=== PATIENT | female | born 1980 | race Caucasian/White ===

== ENCOUNTER 2017-12-26 13:45 | Observation (INO) | payer BC, OTHER ==
[~2017-12-26] VITALS: Ht 172.7 cm; Wt 81.6 kg
[2017-12-26] MEDS ORDERED: SODIUM CHLORIDE 0.9% 1,000 ML IVB ONE (14:01)
[2017-12-26 14:32] LABS: Basophils # (auto) 0 uL; Basophils % (auto) 0.2 % (0.0-2.0); Eosinophils # (auto) 0 uL; Eosinophils % (auto) 0.4 % (0.0-7.0); Hematocrit 42.5 % (36.0-46.0); Hemoglobin 14.3 g/dL (12.2-16.2); Mean Corpuscular Hemoglobin 31.9 pg (28.0-32.0); Mean Corpuscular Hgb Conc. 33.6 g/dL (32.0-36.0); Mean Corpuscular Volume 94.9 fL (80.0-100.0); Monocytes # (auto) 0.5 uL; Monocytes % (auto) 8.1 % (0.0-12.0); Neutrophils # (auto) 3.1 uL; Neutrophils % (auto) 55.3 % (37.0-80.0); Nucleated Red Blood Cells % 0.1 %; Platelet Count (auto) 355 10^3/uL (140-450); Red Blood Cells 4.48 10^6/uL (4.0-5.20); Red Cell Distribution Width 13.3 % (11.8-14.3); White Blood Cell 5.6 10^3/uL (4.4-10.8)
[2017-12-26 14:42] LABS: Alanine Aminotransferase 36 U/L (13-56); Albumin 3.5 g/dL (3.4-5.0); Alkaline Phosphatase 69 U/L (45-117); Anion Gap 6 (5-15); Aspartate Aminotransferase 35 U/L (15-37); BUN/Creatinine Ratio 15.9; Bilirubin, Total 0.3 mg/dL (0.2-1.0); Blood Alcohol < 3.0 mg/dL (0-5); Blood Urea Nitrogen 10 mg/dL (7-18); Carbon Dioxide 25 mmol/L (21-32); Chloride 106 mmol/L (98-107); GFR African American 138 mL/min; GFR Non-African American 114 mL/min; Glucose 90 mg/dL (74-106); Potassium 4.2 mmol/L (3.5-5.1); Sodium 137 mmol/L (136-145); Total Protein 7.1 g/dL (6.4-8.2)
[2017-12-26 14:58] LABS: Urine Bacteria NONE SEEN /hpf (None Seen); Urine Blood 2+ /uL (Negative); Urine Mucus FEW (None Seen); Urine Specific Gravity 1.032 (1.001-1.035); Urine WBC 43 /hpf (0 - 5)
[2017-12-26 15:18] LABS: Alcohol, Urine < 3.0 mg/dL (0-5); Amphetamine Screen, Urine NEGATIVE (NEGATIVE); Barbiturate Scree,Urine NEGATIVE (NEGATIVE); Benzodiazephine Screen, Urine POSITIVE (NEGATIVE); Cannabinoid Screen, Urine NEGATIVE (NEGATIVE); Cocaine Screen, Urine NEGATIVE (NEGATIVE); Opiate Scree,Urine POSITIVE (NEGATIVE); Phencyclidine Screen, Urine NEGATIVE (NEGATIVE)
[2017-12-26 15:20] LABS: INR 0.99 (0.9-1.15); Partial Thromboplastin Time 31.4 sec (22.64-33.71); Prothrombin Time 10.8 sec (9.37-12.3)
[2017-12-26 17:19] LABS: Acetaminophen < 2.0 ug/mL (10-30); Salicylate < 1.7 mg/dL (2.8-20.0)
[2017-12-26] MEDS ORDERED: cefTRIAXone 1GM/10ml IVPUSH 10 ML IV ONE (21:15)
[2017-12-26] MEDS ORDERED: SODIUM CHLORIDE 0.9% 1,000 ML IV ONE (21:15)
[2017-12-26 21:39] VITALS: BP 135/88
[2017-12-27] MEDS ORDERED: cefTRIAXone 1GM/10ml IVPUSH 10 ML IV SCH (09:00)
== END 2017-12-26 21:44 | disposition home or self-care (01) | DRG 918 ==
LOC: ER 13:45 → OVERFLOW 14:04 → ER 21:44
PROVIDERS: ADMIT Family Medicine; ATTEND Family Medicine
DX: T42.4X1A Poisoning by benzodiazepines, accidental (unintentional), initial encounter (principal); F11.20 Opioid dependence, uncomplicated; N39.0 Urinary tract infection, site not specified; F32.9 Major depressive disorder, single episode, unspecified; Y92.89 Other specified places as the place of occurrence of the external cause; F41.9 Anxiety disorder, unspecified; G89.29 Other chronic pain; M54.9 Dorsalgia, unspecified; R41.82 Altered mental status, unspecified
CPT/HCPCS: 36415; 70450; 80053; 80307; 80320; 80329; 81001; 81025; 83735; 85025; 85610; 85730; 87086; 96360; 99285; G0378

== ENCOUNTER 2021-11-23 09:29 | Emergency (ER) | payer BC ==
[~2021-11-23] VITALS: Ht 167.6 cm; Wt 102.1 kg
[2021-11-23] MEDS ORDERED: ONDANSETRON ODT 4 MG TAB PO ONE (10:00)
[2021-11-23] MEDS ORDERED: SUMAtriptan SUCCINATE 6 MG/0.5 ML VL SC ONE (10:00)
[2021-11-23] MEDS ORDERED: SODIUM CHLORIDE 0.9% 500 ML IV ONE (11:45)
[2021-11-23 12:47] VITALS: BP 129/81
== END 2021-11-23 11:54 | disposition short-term general hospital (02) ==
LOC: ER 09:29
DX: S02.0XXA Fracture of vault of skull, initial encounter for closed fracture (principal); S06.4X9A Epidural hemorrhage with loss of consciousness of unspecified duration, initial encounter; H65.03 Acute serous otitis media, bilateral; X58.XXXA Exposure to other specified factors, initial encounter; Y93.89 Activity, other specified; Y92.89 Other specified places as the place of occurrence of the external cause; Y99.8 Other external cause status
CPT/HCPCS: 70450; 96372; 99285; J3030; Q0162